=== PATIENT | female | born 1980 | race Caucasian/White ===

== ENCOUNTER 2018-04-05 15:05 | Emergency (ER) | payer OTHER ==
[2018-04-05] MEDS: FAMOTIDINE 20 MG TAB PO (17:20)
[2018-04-05] MEDS: METHYLPREDNISOLONE 125 MG INJ IM (17:25)
[2018-04-05] MEDS: DIPHENHYDRAMINE 50 MG INJ IM (17:25)
== END 2018-04-05 17:30 | disposition home or self-care (01) ==
LOC: FTE 15:05
DX: L50.0 Allergic urticaria (principal); J45.909 Unspecified asthma, uncomplicated; E03.9 Hypothyroidism, unspecified
CPT/HCPCS: 81025; 96372; 99284-25